=== PATIENT | female | born 1930 | race Caucasian/White ===

== ENCOUNTER 2016-09-23 21:08 | Emergency (ER) | payer MEDICARE, BC ==
[~2016-09-23] VITALS: Ht 162.6 cm; Wt 68.0 kg
[2016-09-23] MEDS ORDERED: ASPI81 PO (21:14)
[2016-09-23] MEDS ORDERED: METH10 PO (21:14)
[2016-09-23] MEDS ORDERED: HYDR-305 PO (21:14)
[2016-09-23] MEDS ORDERED: GABA-531 PO (21:14)
[2016-09-23] MEDS ORDERED: CALC25 PO (21:14)
[2016-09-23] MEDS ORDERED: MEMA28CA PO (21:14)
[2016-09-23] MEDS ORDERED: SPIR25 PO (21:14)
[2016-09-23] MEDS ORDERED: AMLO2.5T PO (21:14)
[2016-09-23] MEDS ORDERED: LOSA50TA37 PO (21:14)
[2016-09-23] MEDS ORDERED: TEMA15CA PO (21:14)
[2016-09-23] MEDS ORDERED: LEVO25TA4 PO (21:14)
[2016-09-23] MEDS ORDERED: SIMV-260 PO (21:14)
[2016-09-23] MEDS ORDERED: FURO40 PO (21:14)
[2016-09-23 21:54] LABS: BASOPHILS # (AUTO) 0.04 K/uL (0.00-0.20); BASOPHILS % (AUTO) 0.4 % (0.0-2.0); EOSINOPHILS # (AUTO) 0.17 K/uL (0.00-0.70); EOSINOPHILS % (AUTO) 1.88 % (1.0-6.0); HEMATOCRIT 42.6 % (36-46); HEMOGLOBIN 14.1 g/dL (12.0-16.0); LYMPHOCYTES % (AUTO) 22.8 % (22.0-44.0); MEAN CORPUSCULAR HEMOGLOBIN 31.7 pg (26.0-34.0); MEAN CORPUSCULAR VOLUME 96 fL (80-100); MONOCYTES # (AUTO) 0.9 K/uL (0.1-1.0); MONOCYTES % (AUTO) 9.7 % (2.0-9.0); NEUTROPHILS # (AUTO) 5.8 K/uL (1.8-7.7); NEUTROPHILS % (AUTO) 65.2 % (40.0-70.0); PLATELET COUNT (AUTO) 255 K/uL (150-450); RED BLOOD CELL COUNT(AUTO) 4.43 MIL/uL (4.00-5.20); RED CELL DISTRIBUTION WIDTH 13.9 % (11.5-14.5)
[2016-09-23 22:05] LABS: CREATININE 1.1 mg/dL (0.60-1.30); POTASSIUM 3.8 mmol/L (3.5-5.1)
[2016-09-23 22:11] LABS: ALBUMIN 3.6 g/dL (3.4-5.0); BILIRUBIN,TOTAL 0.3 mg/dL (0.1-1.0); TOTAL PROTEIN, SERUM 7.1 g/dL (6.4-8.2)
[2016-09-23] MEDS ORDERED: PHENAZOPYRIDINE HCL 100 MG TABLET PO ONE (22:15)
[2016-09-23 22:42] LABS: APPEARANCE,URINE CLEAR (CLEAR); GLUCOSE, URINE (UA) NEGATIVE (NEGATIVE); KETONES,URINE NEGATIVE (NEGATIVE); LEUKOCYTE ESTERASE ,URINE NEGATIVE (NEGATIVE); OCCULT BLOOD,URINE NEGATIVE (NEGATIVE); PROTEIN,URINE NEGATIVE (NEGATIVE)
[2016-09-23 22:51] LABS: RBC,URINE 0-2 /HPF (0-2); SQUAMOUS EPITHELIAL CELL,UR Few /LPF (None Seen); WBC,URINE 0-2 /HPF (0-5)
[2016-09-23 23:09] VITALS: BP 135/65
== END 2016-09-23 23:24 | disposition home or self-care (01) ==
LOC: EMS 21:09
DX: N39.0 Urinary tract infection, site not specified (principal); I10 Essential (primary) hypertension; E03.9 Hypothyroidism, unspecified; Z79.82 Long term (current) use of aspirin
CPT/HCPCS: 99284

== ENCOUNTER → 2016-09-28 | Outpatient (CLI) | payer MEDICARE, BC ==
[~2016-09-28] MED LIST: AMLO2.5T PO; ASPI81 PO; CALC25 PO; FURO40 PO; GABA-531 PO; HYDR-305 PO; LEVO25TA4 PO; LOSA50TA37 PO; MEMA28CA PO; METH10 PO; SIMV-260 PO; SPIR25 PO; TEMA15CA PO
[2016-09-29 12:12] LABS: APPEARANCE,URINE CLEAR (CLEAR); GLUCOSE, URINE (UA) NEGATIVE (NEGATIVE); KETONES,URINE NEGATIVE (NEGATIVE); LEUKOCYTE ESTERASE ,URINE NEGATIVE (NEGATIVE); OCCULT BLOOD,URINE NEGATIVE (NEGATIVE); PH,URINE 6.5 (5.0-8.0); PROTEIN,URINE NEGATIVE (NEGATIVE)
[2016-09-29 12:14] LABS: ADD UA MICROSCOPIC NO
== END | disposition home or self-care (01) ==
LOC: RADMN 09:41
PROVIDERS: ATTEND Specialist
DX: R41.3 Other amnesia (principal); R26.81 Unsteadiness on feet
CPT/HCPCS: 70551; 87086; 95816

== ENCOUNTER → 2016-10-02 | Outpatient (CLI) | payer MEDICARE, BC | END | disposition home or self-care (01) | LOC: RADPV 12:58 | PROVIDERS: ATTEND Orthopaedic Surgery | DX: S72.401D Unspecified fracture of lower end of right femur, subsequent encounter for closed fracture with routine healing (principal); S72.491D Other fracture of lower end of right femur, subsequent encounter for closed fracture with routine healing; Z96.651 Presence of right artificial knee joint | CPT/HCPCS: 73552 ==